=== PATIENT | male | born 2000 | race African-American/Black ===

== ENCOUNTER 2020-06-15 16:27 | Emergency (ER) | payer OTHER, SELFPAY ==
[2020-06-15 16:35] VITALS: BP 128/74; PULSE 68; RESP 19; TEMP 36.7; O2SAT 100; BMI 20.1
[2020-06-15 16:51] VITALS: BP 116/80; PULSE 62; RESP 14; TEMP 36.9; O2SAT 99; BMI 20.1
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
--- NOTE | 2020-06-15 17:00 | XR_ITS ---
PROCEDURE: XR MANDIBLE MIN 4V CLINICAL INDICATION: pain COMPARISON: No exams were available for comparison FINDINGS: No obvious fracture or dislocation.-no lytic or blastic change. The TMJs are not well delineated. Consider CT for more thorough evaluation if clinically desired. IMPRESSION: No obvious fracture. See above Dictated b Triston Rivera MD 06/16/2020 05:44 Triston Rivera MD in [place] 06/16/2020 05:44
[2020-06-15 17:51] VITALS: BP 116/80; PULSE 62; RESP 14; TEMP 36.9; O2SAT 99
== END 2020-06-15 17:52 | disposition home or self-care (01) ==
PROVIDERS: Emergency Provider Nurse Practitioner Family; PCP Family Medicine
DX: S00.83XA Contusion of other part of head, initial encounter (principal); Y04.2XXA Assault by strike against or bumped into by another person, initial encounter; Y92.019 Unspecified place in single-family (private) house as the place of occurrence of the external cause; F17.210 Nicotine dependence, cigarettes, uncomplicated; Z88.1 Allergy status to other antibiotic agents; Z88.2 Allergy status to sulfonamides
CPT/HCPCS: 70110; 99201

== ENCOUNTER 2021-05-10 15:51 | Emergency (ER) | payer OTHER, SELFPAY ==
[2021-05-10 15:59] VITALS: BP 127/74; PULSE 56; RESP 16; O2SAT 100; BMI 20.9
--- NOTE | 2021-05-10 16:05 | XR_ITS ---
PROCEDURE INFORMATION: Exam: XR Left Knee Exam date and time: 05/10/2021 4:05 PM Age: 21 years old Clinical indication: Patient HX: Left knee pain after playing softball yesterday, swelling. ; Additional info: Injury TECHNIQUE: Imaging protocol: XR Left knee. Views: 3 views. COMPARISON: No relevant prior studies available. FINDINGS: Bones/joints: Spurring noted along the medial aspect of the proximal tibia. There is no evidence of acute fracture. There is no evidence of joint malalignment or dislocation. Soft tissues: Normal. IMPRESSION: 1. Spurring noted along the medial aspect of the proximal tibia. 2. No evidence of acute fracture. 3. No evidence of acute dislocation.
[2021-05-10 16:08] VITALS: BP 127/74; PULSE 56; RESP 16; O2SAT 100; BMI 20.9
--- NOTE | 2021-05-10 16:57 | HMH.EDUTC ---
[facility] [place] Disposition Clinical Impression: Instability of left knee joint Left knee injury Qualifiers: Encounter type: initial encounter Qualified Code(s): S89.92XA - Unspecified injury of left lower leg, initial encounter Left knee pain Qualifiers: Chronicity: acute Qualified Code(s): M25.562 - Pain in left knee Disposition: Home, Self-Care Condition on Discharge: Good Instructions: How to Use Crutches, Knee Sprain, How to Use a Knee Immobilizer Additional Instructions: Rest the extremity, apply ice for 15 minutes as tolerated three or four times per day, Elevate the extremity as tolerated while you are resting. Take ibuprofen for pain. I sent in a prescription to your pharmacy. Follow up with Dr. Brown (orthopedics). I put in a referral but you need to call his office and schedule an appointment. Follow up with your regular doctor. GO TO THE ER FOR ANY WORSENING SYMPTOMS Prescriptions: Ibuprofen [Ibuprofen 800mg Tablet] 800 mg PO Q8HP PRN #30 tab PRN Reason: Moderate Pain Transmission Status: Received by [id number] Referrals: Nagi Guerra [Primary Care Provider] - Kenny Brown MD [Staff Physician] - Time of Disposition: 17:00 Medical Decision Making - Medical Records Medical records reviewed: No: I reviewed the patient's medical records. - Dmitriy Inquiry Pt receiving controlled substance: No Vital Signs: 05/10/21 15:59 05/10/21 16:08 05/10/21 17:04 Temperature 98 F Pulse Rate 59 L Pulse Rate [Radial] 56 L 56 L Respiratory Rate 16 16 18 Blood Pressure 122/70 Blood Pressure [Right Arm] 127/74 127/74 Blood Pressure Mean [Right Arm] 91 91 02 Sat by Pulse Oximetry 100 100 Oxygen Delivery Method Room Air - Radiology Data #1 Image(s): Knee Image Reviewed: Yes I reviewed the patient's radiology image, Yes I have reviewed radiologist's interpretation Preliminary Findings: No Fracture Seen PROCEDURE INFORMATION: Exam: XR Left Knee Exam date and time: 05/10/2021 4:05 PM Age: 21 years old Clinical indication: Patient HX: Left knee pain after playing softball yesterday, swelling. ; Additional info: Injury TECHNIQUE: Imaging protocol: XR Left knee. Views: 3 views. COMPARISON: No relevant prior studies available. FINDINGS: Bones/joints: Spurring noted along the medial aspect of the proximal tibia. There is no evidence of acute fracture. There is no evidence of joint malalignment or dislocation. Soft tissues: Normal. IMPRESSION: 1. Spurring noted along the medial aspect of the proximal tibia. 2. No evidence of acute fracture. 3. No evidence of acute dislocation. [facility] [place] HPI - General Stated complaint: injured knee 05/09 playing softball Time Seen by Provider: 05/10/21 16:10 Mode of Arrival: Ambulatory Source of Information: Patient Limitations: No Limitations Description of Symptoms (Recalled from Triage Doc. by RN): pt injured L knee playing softball and is now c/o pain. HEENT Symptoms (Recalled from RN notes): No Resp Symptoms (Recalled from RN notes): No Skin Symptoms (Recalled from RN notes): No MS Symptoms (Recalled from RN notes): Yes (L knee pain) Functional Status (Recalled from RN notes): na - History of Present Illness Provider Complaint: He states that since last night he has had left knee pain. He denies any known injury but he played in a softball league game yesterday, then he began to have the knee pain afterwards. He states that he has had pain of the knee off and on since playing sports when he was in school. He state that walking on it and bearing weight make it worse. - Related Data Previous Rx's Medication Instructions Recorded Ibuprofen [Ibuprofen 600mg 600 mg PO Q6HP PRN #30 tab 06/15/20 Tablet] Ibuprofen [Ibuprofen 800mg 800 mg PO Q8HP PRN #30 tab 05/10/21 Tablet] Allergies Allergy/AdvReac Type Severity
[2021-05-10 17:04] VITALS: BP 122/70; PULSE 59; RESP 18; TEMP 36.6
== END 2021-05-10 17:13 | disposition home or self-care (01) ==
PROVIDERS: Emergency Provider Nurse Practitioner Family; PCP Family Medicine
DX: S89.92XA Unspecified injury of left lower leg, initial encounter (principal); X50.1XXA Overexertion from prolonged static or awkward postures, initial encounter; Y93.64 Activity, baseball; Y92.320 Baseball field as the place of occurrence of the external cause; F17.210 Nicotine dependence, cigarettes, uncomplicated; Z88.2 Allergy status to sulfonamides
CPT/HCPCS: 29505; 73562; 99202; G0463

== ENCOUNTER → 2023-03-21 14:05 | Outpatient (CLI) | payer OTHER, SELFPAY ==
--- NOTE | 2023-03-21 14:05 | CT_ITS ---
FINAL REPORT TECHNIQUE: Axial CT images were obtained through the orbits/sella turcica/middle ear. Coronal and sagittal reformats were obtained.This study was performed with techniques to keep radiation doses as low as reasonably achievable (ALARA). Individualized dose reduction techniques using automated exposure control or adjustment of mA and/or kV according to the patient's size were employed. 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 COMPARISON: February 03, 2023 FINDINGS: There are subacute fractures of the nasal bones. The orbits are intact. The globes are symmetric. The optic nerves appear intact. There is no intra-or extraconal inflammation. The extraocular muscles are normal in size and symmetric. There is mild mucosal thickening in the bilateral maxillary sinuses and several ethmoid air cells. IMPRESSION: Subacute fractures of the nasal bones. Reviewed, Interpreted and Dictated by Rodney Kingston III, MD Transcribed by Troy Wise Authenticated and [facility]
--- NOTE | 2023-03-21 14:22 | MR_ITS ---
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 There is no evidence of intracranial hemorrhage or mass. No abnormal extra-axial fluid collection is seen. The ventricular size is within normal limits. There is no evidence of shift of the midline structures. The posterior fossa and brainstem have an unremarkable appearance. No area of abnormal restricted diffusion is identified. No abnormal contrast enhancement is seen. Normal major vessel vascular flow voids are noted. There is mucosal thickening in multiple sinuses. IMPRESSION: No acute intracranial abnormality identified. Reviewed, Interpreted and Dictated by Rodney Kingston III, MD Transcribed by Troy Wise Authenticated and [facility]
== END ==
PROVIDERS: PCP Family Medicine; Visit Provider Nurse Practitioner Family
DX: G44.309 Post-traumatic headache, unspecified, not intractable (principal); H49.20 Sixth [abducent] nerve palsy, unspecified eye; S09.90XA Unspecified injury of head, initial encounter; H05.53 Retained (old) foreign body following penetrating wound of bilateral orbits
CPT/HCPCS: 70480; 70553; A9576